=== PATIENT | female | born 1990 | race Caucasian/White ===

== ENCOUNTER 2021-07-24 12:34 | Emergency (ER) | payer OTHER ==
[~2021-07-24 12:34] MED LIST: MOTRIN600 MG PO; NORCO 5-325 TA1 EACH PO; ZOFRAN4 MG PO
[2021-07-24] MEDS ORDERED: FIORICET1 EACH PO (13:57)
[2021-07-24] MEDS ORDERED: ONDANSETRON ODT4 MG PO (14:04)
== END 2021-07-24 14:07 | disposition home or self-care (01) ==
LOC: FER 12:34
DX: F07.81 Postconcussional syndrome (principal); W22.01XA Walked into wall, initial encounter
CPT/HCPCS: 70450; 72125; 96372; J1100; J1885

== ENCOUNTER 2021-09-17 11:47 | Emergency (ER) | payer OTHER ==
[~2021-09-17 11:47] MED LIST changes: +FIORICET1 EACH PO; +ONDANSETRON ODT4 MG PO
[2021-09-17] MEDS ORDERED: ONDANSETRON ODT4 MG PO (22:18)
== END 2021-09-17 14:12 | disposition left against medical advice (07) ==
LOC: FER 11:47
DX: M54.50 Low back pain, unspecified (principal); R10.9 Unspecified abdominal pain; Z53.8 Procedure and treatment not carried out for other reasons; Z28.310 Unvaccinated for COVID-19
CPT/HCPCS: 99281

== ENCOUNTER 2021-09-17 21:15 | Emergency (ER) | payer OTHER ==
[2021-09-17 21:43] LABS: BILIRUBIN NEGATIVE (NEGATIVE); BLOOD NEGATIVE Ery/uL (NEGATIVE); CLARITY CLEAR (CLEAR); COLOR STRAW (YELLOW); GLUCOSE (U) NORMAL (NORMAL); LEUKOCYTES NEGATIVE Leu/uL (NEGATIVE); NITRITE NEGATIVE (NEGATIVE); PROTEIN NEGATIVE (NEGATIVE); SPECIFIC GRAVITY <=1.005 (1.001-1.030); UROBILINOGEN 0.2 mg/dL (0.2-1.0)
[2021-09-17 21:49] LABS: BASOPHIL 0.5 % (0-2); EOSINOPHIL 1.9 % (0-5); HCT 40.4 % (37.0-47.0); HGB 13.8 g/dl (12.5-16.0); LYMPHOCYTE 32.9 % (15-48); MCH 31.4 pg (25.0-31.0); MCHC 34.2 g/dL (32.0-36.0); MONOCYTE 9.2 % (0-12); MPV 9.3 fL (6.0-9.5); NEUTROPHIL 55.4 % (41-80); NRBC 0; PLT 221 K/uL (150-400); RBC 4.39 M/uL (4.20-5.40); RDW 12.6 % (11.5-14.0); WBC 7.4 K/uL (4.0-10.5)
[2021-09-17 22:05] LABS: ALBUMIN 4.1 g/dL (3.4-5.0); BILIRUBIN - TOTAL 0.2 mg/dL (0.2-1.0); BUN/CREAT RATIO (CALC) 8.5 RATIO; CREATININE 0.59 mg/dL (0.51-0.95); GLOBULIN (CALCULATION) 3.4 g/dL; POTASSIUM 3.6 mmol/L (3.5-5.1); TOTAL PROTEIN 7.5 g/dL (6.4-8.2)
[2021-09-17] MEDS ORDERED: ONDANSETRON ODT4 MG PO (22:18)
== END 2021-09-17 22:24 | disposition home or self-care (01) ==
LOC: FER 21:15
PROVIDERS: Emergency Medicine
DX: A08.4 Viral intestinal infection, unspecified (principal); F17.200 Nicotine dependence, unspecified, uncomplicated; Z28.310 Unvaccinated for COVID-19
CPT/HCPCS: 36415; 80053; 81003; 83690; 85025; 99284; J2405; J7030